=== PATIENT | female | born 1935 | race African-American/Black ===

== ENCOUNTER 2017-03-19 10:09 | Observation (INO) | payer MEDICARE ==
--- NOTE | 2017-03-19 10:46 | ER Document Report ---
ED Respiratory Problem <JONAH HE - Last Filed: 03/19/17 13:35> - General TRAVEL OUTSIDE OF THE [place] IN LAST 30 DAYS: No <SARAH BETH MATT - Last Filed: 03/19/17 14:27> - General Chief Complaint: Respiratory Distress Stated Complaint: SHORTNESS OF BREATH Time Seen by Provider: 03/19/17 10:36 Notes: Patient is here to have her heart checked. She says that on Saturday when she awakened with some shortness of breath and felt "a hard time breathing". She also experienced some left-sided anterior chest pains, and the upper portion of the left breast which was worsened if she coughed. She denies having a fever or any symptoms of a respiratory infection or illness. She has never had this pain previously. In fact, patient says she has never had any heart condition or heart attack or heart failure. Her only history is of high blood pressure. Yesterday, she says her symptoms were a little worse, but today she no longer has the pain and only feels some shortness of breath. Patient denies any swelling or pain of either of her legs. Currently not having any chest pain. Denies any vomiting or diarrhea. Denies UTI symptoms. (SARAH BETH MATT) - Related Data Allergies/Adverse Reactions: Penicillins Allergy (Verified 03/19/17 10:15) HIVES/SWELLING Past Medical History - Social History Smoking Status: Never Smoker Family History: Reviewed & Not Pertinent Patient has suicidal ideation: No Patient has homicidal ideation: No - Past Medical History Cardiac Medical History: Reports: Hx Hypertension Denies: Hx Heart Attack Pulmonary Medical History: Denies: Hx Asthma Neurological Medical History: Denies: Hx Cerebrovascular Accident, Hx Seizures GI Medical History: Reports: Hx Hepatitis. Denies: Hx Hiatal Hernia, Hx Ulcer Infectious Medical History: Denies: Hx Hepatitis Past Surgical History: Reports: Hx Orthopedic Surgery - Right TKR <SARAH BETH MATT - Last Filed: 03/19/17 14:27> Review of Systems <JONAH HE - Last Filed: 03/19/17 13:35> <SARAH BETH MATT - Last Filed: 03/19/17 14:27> - Review of Systems Notes: REVIEW OF SYSTEMS: CONSTITUTIONAL : Denies fever. EENT: Denies eye, ear, nose or mouth or throat pain or other symptoms. CARDIOVASCULAR: See HPI. RESPIRATORY: Has shortness of breath, but denies chest congestion or cough. GASTROINTESTINAL: Denies abdominal pain or nausea, vomiting, or diarrhea. GENITOURINARY: Denies difficulty or painful urinating, urinary frequency, blood in urine. MUSCULOSKELETAL: Denies back or neck pain. Denies joint pain or swelling. Denies any leg pain or swelling. SKIN: Denies rash or skin lesions. NEUROLOGICAL: Denies LOC or altered mental status. Denies headache. Denies sensory loss or motor deficits. ALL OTHER SYSTEMS REVIEWED AND NEGATIVE. (SARAH BETH MATT) Physical Exam <JONAH HE - Last Filed: 03/19/17 13:35> - Vital signs Interpretation: Normal <SARAH BETH MATT - Last Filed: 03/19/17 14:27> - Vital signs Vitals: Temp Pulse BP Pulse Ox 97.9 F 57 L 129/74 H 98 03/19/17 10:25 03/19/17 10:25 03/19/17 10:25 03/19/17 10:25 - Notes Notes: PHYSICAL EXAMINATION: GENERAL: Well-appearing, in no acute distress. Vital signs are all normal. Denies having any pain at this time, although she says she does feel a little short of breath. ENT: oropharynx clear without exudates. Moist mucous membranes. NECK: Normal range of motion, supple. LUNGS: Breath sounds clear and equal bilaterally. HEART: Regular rate and rhythm without murmurs. Heart rate about 100 to 120. Occasional ectopic beats noted. ABDOMEN: Soft, nontender. No guarding or rebound. BACK: No tenderness throughout entire back. EXTREMITIES: Normal range of motion without pain. No swelling or tenderness. Negative Homans bilaterally. NEUROLOGICAL: Normal speech, normal gait. Normal sensory, motor, and reflex exams. Awake, alert, and oriented x3. Cranial nerves normal. PSYCH: Normal mood, normal affect. SKIN: Warm, dry, no rashes. (SARAH BETH MATT) Course - Laboratory Result Diagrams: 03/19/17 10:37 03/19/17 10:37 <JONAH HE - Last Filed: 03/19/17 13:35> - Laboratory Result Diagrams: 03/19/17 10:37 03/19/17 10:37 - Diagnostic Test Radiology reviewed: Image reviewed, Reports reviewed - CTA of the chest shows extensive bilateral pulmonary emboli with some suggestion of early pulmonary infarct on the left side. - EKG Interpretation by Me EKG shows normal: Sinus rhythm Rate: Tachycardia - At 109 Rhythm: PVC's - Unifocal [place]/QRS: RBBB <SARAH BETH MATT - Last Filed: 03/19/17 14:27> - Re-evaluation Re-evalutation: 03/19/17 11:19 Patient's only previous visit to this hospital was for cataract surgery over a year ago. She did not have an EKG done at that time. We contacted her primary care physician's office in [place] and they provided us with an EKG from January,. The quality of that EKG is poor, but it appears to me that the patient had a right bundle branch block on that EKG. 03/19/17 13:08 Spoke with hospitalist on-call, Dr. Cameron, who will evaluate the patient in the emergency department to determine suitability for outpatient treatment versus inpatient treatment. (SARAH BETH MATT) - Vital Signs Vital signs: Temp Pulse Resp BP Pulse Ox 97.9 F 57 L 17 140/85 H 96 03/19/17 10:25 03/19/17 10:25 03/19/17 14:00 03/19/17 13:00 03/19/17 14:00 - Laboratory Laboratory results interpreted by me: 03/19/17 03/19/17 03/19/17 10:37 10:37 10:37 RDW 15.1 H D-Dimer 2.51 H BUN 23 H Est GFR (Non-Af Amer) 57 L Glucose 119 H Urine Ascorbic Acid 03/19/17 11:23 RDW D-Dimer BUN Est GFR (Non-Af Amer) Glucose Urine Ascorbic Acid 40 H - Diagnostic Test Radiology results interpreted by me: 03/19/17 13:02 Chest x-ray is normal. (SARAH BETH MATT) Discharge - Discharge Admitting Provider: Hospitalist Unit Admitted: IMCU <JONAH HE - Last Filed: 03/19/17 13:35> <SARAH BETH MATT - Last Filed: 03/19/17 14:27> - Discharge Clinical Impression: Pulmonary embolism Qualifiers: Pulmonary embolism type: other Chronicity: acute Acute cor pulmonale presence: without acute cor pulmonale Qualified Code(s): I26.99 - Other pulmonary embolism without acute cor pulmonale Condition: Stable
[2017-03-19 11:11] LABS: ABSOLUTE LYMPHOCYTES (AUTO) 1.5 10^3/uL (0.5-4.7); ABSOLUTE MONOCYTES (AUTO) 0.7 10^3/uL (0.1-1.4); ABSOLUTE NEUT (AUTO) 4.7 10^3/uL (1.7-8.2); BASOPHILS % (AUTO) 0.4 % (0-2); EOSINOPHILS % (AUTO) 0.6 % (0-6); HEMATOCRIT 44.5 % (36.0-47.0); HEMOGLOBIN 15.1 g/dL (12.0-15.5); HGB HCT DIFFERENCE 0.8; LYMPHOCYTES % (AUTO) 21.3 % (13-45); MEAN CORPUSCULAR VOLUME 88 fl (80-97); MONOCYTES % (AUTO) 9.8 % (3-13); RED BLOOD COUNT 5.04 10^6/uL (3.72-5.28); RED CELL DISTRIBUTION WIDTH 15.1 % (11.5-14.0); SEGMENTED NEUTROPHILS % (AUTO) 67.9 % (42-78); WHITE BLOOD COUNT 6.9 10^3/uL (4.0-10.5)
--- NOTE | 2017-03-19 11:20 | RADIOLOGY REPORT (SQ) ---
EXAM DESCRIPTION: CHEST PA/LAT COMPLETED DATE/TIME: 03/19/2017 11:13 am REASON FOR STUDY: short of breath and left chest pain COMPARISON: None. EXAM PARAMETERS: NUMBER OF VIEWS: two views TECHNIQUE: Digital Frontal and Lateral radiographic views of the chest acquired. RADIATION DOSE: NA LIMITATIONS: none FINDINGS: LUNGS AND PLEURA: No opacities, masses or pneumothorax. No pleural effusion. MEDIASTINUM AND HILAR STRUCTURES: No masses or contour abnormalities. HEART AND VASCULAR STRUCTURES: Heart normal size. No evidence for failure. BONES: No acute findings. Degenerative changes in the spine. HARDWARE: None in the chest. OTHER: No other significant finding. IMPRESSION: NO SIGNIFICANT RADIOGRAPHIC FINDING IN THE CHEST. TECHNICAL DOCUMENTATION: JOB ID: [id number] [employer]- All Rights Reserved
[2017-03-19 11:25] LABS: ALANINE AMINOTRANSFERASE 24 U/L (9-52); ALBUMIN 4.1 g/dL (3.5-5.0); ALKALINE PHOSPHATASE 90 U/L (38-126); ANION GAP 12 (5-19); ASPARTATE AMINO TRANSFERASE 23 U/L (14-36); BILIRUBIN,DIRECT 0.3 mg/dL (0.0-0.4); BILIRUBIN,TOTAL 0.7 mg/dL (0.2-1.3); BLOOD UREA NITROGEN 23 mg/dL (7-20); CALCIUM 10.2 mg/dL (8.4-10.2); CARBON DIOXIDE 24 mmol/L (22-30); CHLORIDE 105 mmol/L (98-107); CREATINE KINASE 48 U/L (30-135); CREATININE RESULT 0.94 mg/dL (0.52-1.25); GLUCOSE 119 mg/dL (75-110); POTASSIUM 4.2 mmol/L (3.6-5.0); SODIUM 140.9 mmol/L (137-145); TOTAL PROTEIN 7.9 g/dL (6.3-8.2)
[2017-03-19 11:37] LABS: CREATINE KINASE MB 0.95 ng/mL (<4.55); TROPONIN I < 0.012 ng/mL
[2017-03-19 11:41] LABS: APPEARANCE,URINE SLIGHTLY-CLOUDY; BILIRUBIN,URINE NEGATIVE (NEGATIVE); GLUCOSE, URINE NEGATIVE (NEGATIVE); KETONES,URINE NEGATIVE (NEGATIVE); LEUKOCYTE ESTERASE,URINE NEGATIVE (NEGATIVE); NITRITE,URINE NEGATIVE (NEGATIVE); PROTEIN,URINE NEGATIVE (NEGATIVE); UROBILINOGEN,URINE NEGATIVE mg/dL (<2.0)
[2017-03-19] MEDS ORDERED: NORMAL SALINE 1000 ML 1,000 ML IV ONE (12:14)
--- NOTE | 2017-03-19 12:55 | RADIOLOGY REPORT (SQ) ---
EXAM DESCRIPTION: CTA CHEST COMPLETED DATE/TIME: 03/19/2017 12:39 pm REASON FOR STUDY: Left side chest pain, mainly with cough, d-dimer + COMPARISON: None. TECHNIQUE: CT scan of the chest performed using helical scanning technique with dynamic intravenous contrast injection. Images reviewed with lung, soft tissue and bone windows. Reconstructed coronal and sagittal MPR images reviewed. Additional 3 dimensional post-processing performed to develop Maximal Intensity Projection images (ME P). All images stored on PACS. All CT scanners at this facility use dose modulation, iterative reconstruction, and/or weight based d osing when appropriate to reduce radiation dose to as low as reasonably achievable (ALARA). [facility]: Dose Right [facility]: CareDose [facility]: Dose Right [facility]: Teradose 4D [facility]: [employer] ([employer]) CONTRAST TYPE AND DOSE: contrast/concentration: Isovue 370.00 mg/ml; Total Contrast Delivered: 68.0 ml; Total Saline Delivered: 110.0 ml RENAL FUNCTION: BUN 23 creatinine 0.94. RADIATION DOSE: Up-to-date CT equipment and radiation dose reduction techniques were employed. CTDIv ol: 12.0 - 13.2 mGy. DLP: 470 mGy-cm. . LIMITATIONS: None. FINDINGS: LUNGS AND PLEURA: Scattered ground-glass opacity in the left apex. Right lung clear. No pleural effusion or pneumothorax. AORTA AND GREAT VESSELS: No aneurysm or dissection. HEART: No pericardial effusion. PULMONARY ARTERIES: Extensive filling defects in the pulmonary arteries to the right and left lungs, more pronounced in the upper lobes. HILAR AND MEDIASTINAL STRUCTURES: No identified masses or abnormal nodes. HARDWARE: None in the chest. UPPER ABDOMEN: No significant findings. Limited exam. THYROID AND OTHER SOFT TISSUES: No masses. No adenopathy. BONES: No acute or significant finding. 3D MIPS: Confirm above findings. OTHER: No other significant finding. IMPRESSION: 1. EXTENSIVE BILATERAL PULMONARY EMBOLI, MORE PRONOUNCED IN THE UPPER LOBES. 2. GROUND-GLASS OPACITY IN THE LEFT LUNG APEX. THIS IS NONSPECIFIC BUT GIVEN THE PRESENCE OF PULMONA RY EMBOLISM THIS COULD REPRESENT DEVELOPING PULMONARY INFARCTION. INFLAMMATION OR INFECTION ARE ALSO DIAGNOSTIC POSSIBILITIES. COMMENT: Pertinent findings on the imaging study reported as a CRITICAL RESULT to SARAH BETH MATT MD at12:49 on 03/19/2017. Category of Critical Result: Pulmonary emboli. TECHNICAL DOCUMENTATION: JOB ID: [id number] Quality ID # [id number]: Final reports with documentation of one or more dose reduction techniques (e.g., Au tomated exposure control, adjustment of the mA and/or kV according to patient size, use of iterative reconstruction technique) 2010 [employer]- All Rights Reserved
[2017-03-19] MEDS ORDERED: ZOLPIDEM TARTRATE 5 MG TABLET PO PRN (13:52)
[2017-03-19] MEDS ORDERED: PROMETHAZINE HCL 25 MG TABLET PO PRN (13:52)
[2017-03-19] MEDS ORDERED: ACETAMINOPHEN 325 MG TABLET PO PRN (13:52)
[2017-03-19] MEDS ORDERED: MAG HYDROX/AL HYDROX/SIMETH SUSP 30 ML UDCUP PO PRN (13:52)
[2017-03-19] MEDS ORDERED: OXYCODONE-ACETAMINOPHEN 5-325 MG TABLET PO PRN (13:52)
[2017-03-19] MEDS ORDERED: ENOXAPARIN SODIUM INJ 100 MG/1 ML DISP.SYRIN SUBCUT ONE (14:15)
--- NOTE | 2017-03-19 14:45 | PDOC H&P ---
History of Present Illness Admission Date/PCP: 03/19/17 dr. valencia History of Present Illness: MAITE MURO is a 81 year old female with a past medical history of hypertension and hyperlipidemia presents to the emergency department with a 2 day history of shortness of breath and chest pain. Patient reports that she took NyQuil for sleep on Saturday night and woke up Saturday morning feeling short of breath. She reported that she had some slight chest discomfort at that time on the left side but ignored this and went to yazidism. She reports that she later had hand and foot cramps for which she took mustard and this helped. Patient presented to the emergency department today because of ongoing shortness of breath and chest pain and not feeling well. She was found to have bilateral PEs. Patient reports that she last had a colonoscopy approximately 3 years ago and was told that everything was normal. She reports that she sees her doctor approximately every 3 months and has no problems taking any medications. She denies any history of malignancy, thrombophilic disorder, GI bleed, or trauma. Patient has no recent travel or immobilization. She is referred to the hospitalist service for pulmonary embolus. Past Medical History Cardiac Medical History: Reports: Hyperlipidema, Hypertension Denies: Myocardial Infarction Pulmonary Medical History: Denies: Asthma EENT Medical History: Reports: Cataracts Neurological Medical History: Reports: None Denies: Seizures Endocrine Medical History: Reports: None Renal/ Medical History: Reports: None GI Medical History: Reports: None Denies: Hepatitis, Hiatal Hernia Musculoskeltal Medical History: Reports: Arthritis Skin Medical History: Reports: None Psychiatric Medical History: Reports: None Traumatic Medical History: Reports: None Hematology: Reports: None Denies: Anemia, Sickle Cell Disease Infectious Medical History: Reports: None Past Surgical History Past Surgical History: Reports: Orthopedic Surgery - Right TKR, Other - Cataract surgery Denies: Amputation, Mastectomy, Pacemaker Social History Smoking Status: Never Smoker Frequency of Alcohol Use: None Hx Recreational Drug Use: No Hx Prescription Drug Abuse: No - Advance Directive Resuscitation Status: Full Code Surrogate healthcare decision maker:: Cleveland Davis, son Family History Family History: Hypertension, Malignancy, Other - Old age Parental Family History Reviewed: Yes Children Family History Reviewed: Yes Sibling(s) Family History Reviewed.: Yes Medication/Allergy Home Medications: Amlodipine Besylate 10 mg PO DAILY 08/24/15 Aspirin [Berks Aspirin] 81 mg PO DAILY PRN 08/24/15 Allergies/Adverse Reactions: Penicillins Allergy (Verified 03/19/17 10:15) HIVES/SWELLING Review of Systems Constitutional: PRESENT: fatigue. ABSENT: chills, fever(s), headache(s), weight gain, weight loss Eyes: ABSENT: visual disturbances Ears: ABSENT: hearing changes Cardiovascular: PRESENT: as per HPI, chest pain, dyspnea on exertion. ABSENT: edema, orthropnea, palpitations Respiratory: PRESENT: as per HPI, dyspnea. ABSENT: cough, hemoptysis, sputum Gastrointestinal: ABSENT: abdominal pain, constipation, diarrhea, hematemesis, hematochezia, melena, nausea, vomiting Genitourinary: PRESENT: nocturia. ABSENT: difficulty urinating, dysuria, hematuria Musculoskeletal: ABSENT: joint swelling Integumentary: ABSENT: rash, wounds Neurological: ABSENT: abnormal gait, abnormal speech, confusion, dizziness, focal weakness, frequent falls, lack of coordination, syncope Psychiatric: PRESENT: other - Insomnia. ABSENT: anxiety, depression, homidical ideation, suicidal ideation Endocrine: ABSENT: cold intolerance, heat intolerance, polydipsia, polyuria Hematologic/Lymphatic: ABSENT: easy bleeding, easy bruising Physical Exam Vital Signs: Temp Pulse Resp BP Pulse Ox 97.9 F 57 L 18 140/85 H 98 03/19/17 10:25 03/19/17 10:25 03/19/17 13:01 03/19/17 13:00 03/19/17 13:01 Intake & Output 03/18/17 03/19/17 03/20/17 06:59 06:59 06:59 Weight 84.3 kg General appearance: PRESENT: no acute distress, well-developed, well-nourished Head exam: PRESENT: atraumatic, normocephalic Eye exam: PRESENT: conjunctiva pink, EOMI, PERRLA. ABSENT: scleral icterus Ear exam: PRESENT: normal external ear exam Mouth exam: PRESENT: moist, tongue midline Neck exam: ABSENT: carotid bruit, JVD, lymphadenopathy, thyromegaly, tracheal deviation Respiratory exam: PRESENT: clear to auscultation wiley, symmetrical, tachypnea, unlabored. ABSENT: accessory muscle use, chest wall tenderness, crackles, rales , retraction, rhonchi, wheezes Cardiovascular exam: PRESENT: RRR, +S1, +S2, systolic murmur - LLSB 2/6, tachycardia - Very mild. ABSENT: clicks, diastolic murmur, gallop, rubs Pulses: PRESENT: normal dorsalis pedis pul Vascular exam: PRESENT: normal capillary refill GI/Abdominal exam: PRESENT: normal bowel sounds, soft. ABSENT: distended, firm , guarding, mass, Chen's sign, organolmegaly, rebound, rigid, tenderness Rectal exam: PRESENT: deferred Extremities exam: PRESENT: full ROM, other - Evidence of venous stasis. ABSENT : clubbing, pedal edema, tenderness Neurological exam: PRESENT: alert, awake, oriented to person, oriented to place , oriented to time, oriented to situation, CN II-XII grossly intact. ABSENT: motor sensory deficit Psychiatric exam: PRESENT: appropriate affect, normal mood. ABSENT: homicidal ideation, suicidal ideation Skin exam: PRESENT: dry, intact, warm. ABSENT: cyanosis, rash Results Laboratory Results: 03/19/17 10:37 03/19/17 10:37 03/19/17 03/19/17 03/19/17 10:37 10:37 11:23 WBC 6.9 RBC 5.04 Hgb 15.1 Hct 44.5 MCV 88 MCH 30.0 MCHC 34.0 RDW 15.1 H Plt Count 158 Seg Neutrophils % 67.9 Lymphocytes % 21.3 Monocytes % 9.8 Eosinophils % 0.6 Basophils % 0.4 Absolute Neutrophils 4.7 Absolute Lymphocytes 1.5 Absolute Monocytes 0.7 Absolute Eosinophils 0.0 Absolute Basophils 0.0 Sodium 140.9 Potassium 4.2 Chloride 105 Carbon Dioxide 24 Anion Gap 12 BUN 23 H Creatinine 0.94 Est GFR ( Amer) > 60 Est GFR (Non-Af Amer) 57 L Glucose 119 H Calcium 10.2 Total Bilirubin 0.7 AST 23 ALT 24 Alkaline Phosphatase 90 Total Protein 7.9 Albumin 4.1 Lipase 39.0 Urine Color YELLOW Urine Appearance SLIGHTLY-CLOUDY Urine pH 5.0 Ur Specific Lyle 1.020 Urine Protein NEGATIVE Urine Glucose (UA) NEGATIVE Urine Ketones NEGATIVE Urine Blood NEGATIVE Urine Nitrite NEGATIVE Ur Leukocyte Esterase NEGATIVE Urine WBC (Auto) 2 Urine RBC (Auto) 1 03/19/17 03/19/17 10:37 10:37 Creatine Kinase 48 CK-MB (CK-2) 0.95 Troponin I < 0.012 EKG Comments: Right bundle branch block, S1 QT T3 Impressions: Chest X-Ray 03/19/17 10:44 IMPRESSION: NO SIGNIFICANT RADIOGRAPHIC FINDING IN THE CHEST. Chest/Abdomen CTA 03/19/17 12:13 IMPRESSION: 1. EXTENSIVE BILATERAL PULMONARY EMBOLI, MORE PRONOUNCED IN THE UPPER LOBES. 2. GROUND-GLASS OPACITY IN THE LEFT LUNG APEX. THIS IS NONSPECIFIC BUT GIVEN THE PRESENCE OF PULMONARY EMBOLISM THIS COULD REPRESENT DEVELOPING PULMONARY INFARCTION. INFLAMMATION OR INFECTION ARE ALSO DIAGNOSTIC POSSIBILITIES. Status: Imported from PACS Assessment & Plan - Diagnosis (1) Pulmonary embolism Qualifiers: Pulmonary embolism type: other Chronicity: acute Acute cor pulmonale presence: without acute cor pulmonale Qualified Code(s): I26.99 - Other pulmonary embolism without acute cor pulmonale Is this a current diagnosis for this admission?: YesPlan: Patient with acute pulmonary embolus bilaterally without cor pulmonale. Place on observation. Begin patient on Lovenox and transition to Eliquis or Xarelto. I have discussed with both of her sons at length the risk and benefits of warfarin versus Xa inhibitors including increased risk of GI bleeding, and spontaneous hemorrhage. Questions answered to the best of my ability. Agreed to start Eliquis. Patient started on Lovenox pending other evaluation. Obtain echocardiogram. Follow cardiac enzymes. Will recommend patient follow-up with Dr. Johnson as an outpatient for hematologic evaluation. Given patient's age, have concern for underlying undiagnosed malignancy. She does report her last colonoscopy was 3 years ago normal. (2) Hyperlipidemia Qualifiers: Hyperlipidemia type: unspecified Qualified Code(s): E78.5 - Hyperlipidemia, unspecified Is this a current diagnosis for this admission?: YesPlan: Patient reports having recently had this checked and is in the process of changing her diet. Defer to patient's outpatient provider for follow-up (3) Hypertension Qualifiers: Hypertension type: essential hypertension Qualified Code(s): I10 - Essential (primary) hypertension Is this a current diagnosis for this admission?: YesPlan: Continue Norvasc 10 mg p.o. 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 Place patient on low-dose Ambien 5 mg p.o. nightly as needed. Patient with mildly prolonged QT interval and will avoid atypical antipsychotics for this patient. - Time Time Spent: 50 to 70 Minutes Medications reviewed and adjusted accordingly: Yes Anticipated discharge: Home Within: within 48 hours - Inpatient Certification Based on my medical assessment, after consideration of the patient's comorbidities, presenting symptoms, or acuity I expect that the services needed warrant INPATIENT care.: No I certify that my determination is in accordance with my understanding of Medicare's requirements for reasonable and necessary INPATIENT services [42 CFR 412.3e].: No Post Hospital Care: D/C Male Model Documentation
--- NOTE | 2017-03-19 16:55 | RADIOLOGY REPORT (SQ) ---
EXAM DESCRIPTION: VENOUS BILATERAL LOWER COMPLETED DATE/TIME: 03/19/2017 4:47 pm REASON FOR STUDY: new PE COMPARISON: None. TECHNIQUE: Dynamic and static adams scale and color images acquired of both lower extremity venous sy stems. Selected spectral images acquired with additional compression and augmentation maneuvers. Imag es stored on PACS. LIMITATIONS: None. FINDINGS: RIGHT LEG COMMON FEMORAL AND FEMORAL: Normal phasicity, compression and augmentation. No visualized echogenic m aterial on adams scale. No defects on color images. POPLITEAL: Normal compression and augmentation. No visualized echogenic material on adams scale. No de fects on color images. CALF VESSELS: Normal compression and augmentation. No visualized echogenic material on adams scale. No defects on color image. GSV AND SSV: Normal compression. No visualized echogenic material on adams scale. No defects on color images. ANY DEEP VENOUS INSUFFICIENCY: Not evaluated. ANY EVIDENCE OF POPLITEAL CYST: No. OTHER: No other significant finding. LEFT LEG COMMON FEMORAL AND FEMORAL: Normal phasicity, compression and augmentation. No visualized echogenic m aterial on adams scale. No defects on color images. POPLITEAL: Normal compression and augmentation. No visualized echogenic material on adams scale. No de fects on color images. CALF VESSELS: Normal compression and augmentation. No visualized echogenic material on adams scale. No defects on color images. GSV AND SSV: Normal compression. No visualized echogenic material on adams scale. No defects on color images. ANY DEEP VENOUS INSUFFICIENCY: Not evaluated. ANY EVIDENCE POPLITEAL CYST: No. OTHER: No other significant finding. IMPRESSION: NO EVIDENCE DVT OR SVT IN EITHER LEG. COMMENT: Preliminary report was called by the technologist to the referring clinician's office at th e time of patient visit. TECHNICAL DOCUMENTATION: JOB ID: [id number] [employer]- All Rights Reserved
[2017-03-19 17:30] LABS: CREATINE KINASE MB 0.89 ng/mL (<4.55)
[2017-03-19 17:38] LABS: TROPONIN I < 0.012 ng/mL
--- NOTE | 2017-03-19 18:18 | EKG REPORT ---
SEVERITY:- ABNORMAL ECG - SINUS TACHYCARDIA MULTIPLE VENTRICULAR PREMATURE COMPLEXES PROBABLE LEFT ATRIAL ABNORMALITY RIGHT BUNDLE BRANCH BLOCK AND LAFB ANTEROLATERAL INFARCT, AGE INDETERMINATE : Confirmed by: Javi Carbajal MD 19-Mar-2017 18:18:28
[2017-03-19] MEDS: ENOXAPARIN SODIUM INJ 100 MG/1 ML DISP.SYRIN SUBCUT SCH (21:52)
[2017-03-19 23:46] LABS: CREATINE KINASE MB 0.49 ng/mL (<4.55)
[2017-03-19 23:52] LABS: TROPONIN I < 0.012 ng/mL
[2017-03-20 05:18] LABS: HEMATOCRIT 40.9 % (36.0-47.0); HEMOGLOBIN 13.8 g/dL (12.0-15.5); HGB HCT DIFFERENCE 0.5; MEAN CORPUSCULAR HGB CONC 33.6 g/dL (32.0-36.0); MEAN CORPUSCULAR VOLUME 89 fl (80-97); RED BLOOD COUNT 4.59 10^6/uL (3.72-5.28); RED CELL DISTRIBUTION WIDTH 15.5 % (11.5-14.0); WHITE BLOOD COUNT 5.7 10^3/uL (4.0-10.5)
[2017-03-20 05:43] LABS: ANION GAP 9 (5-19); BLOOD UREA NITROGEN 17 mg/dL (7-20); CALCIUM 9.7 mg/dL (8.4-10.2); CARBON DIOXIDE 25 mmol/L (22-30); CHLORIDE 107 mmol/L (98-107); CREATINE KINASE 42 U/L (30-135); CREATININE RESULT 0.74 mg/dL (0.52-1.25); GLUCOSE 100 mg/dL (75-110); POTASSIUM 4.3 mmol/L (3.6-5.0); SODIUM 140.7 mmol/L (137-145)
[2017-03-20 05:49] LABS: CREATINE KINASE MB 0.45 ng/mL (<4.55)
[2017-03-20 05:52] LABS: TROPONIN I < 0.012 ng/mL
[2017-03-20] MEDS: ENOXAPARIN SODIUM INJ 100 MG/1 ML DISP.SYRIN SUBCUT SCH (09:57)
[2017-03-20] MEDS ORDERED: ASPIRIN 81 MG TABLET, CHEWABLE PO SCH (10:00)
[2017-03-20] MEDS ORDERED: AMLODIPINE BESYLATE 10 MG TABLET PO SCH (10:00)
[2017-03-20 16:24] VITALS: BP 130/75
[2017-03-20] MEDS ORDERED: APIXABAN 5 MG TABLET PO SCH (18:00)
--- NOTE | 2017-03-20 19:24 | XCELERA REPORT ---
[address] [address] Transthoracic Echocardiogram Report Name: MAITE MURO Age: 81 yrs Gender: Female : 1935 Patient Status: Inpatient Patient Location: [id number]\S\323\S\A Study Date: 03/20/2017 02:18 PM Height: 70 in Weight: 187 lb BSA: 2.0 m2 Procedure: A complete two-dimensional transthoracic echocardiogram was performed (2D, M-mode, spectral and color flow Doppler). The study was technically adequate with some images being suboptimal in quality. Reason For Study: acute pe, eval for rv strain Ordering Physician: SARY TREJO Performed By: Kiko Medina Interpretation Summary The left ventricular ejection fraction is normal. Doppler measurements suggest impaired left ventricular relaxation, which is associated with grade I/IV or mild diastolic dysfunction There is borderline concentric left ventricular hypertrophy. The left ventricle is grossly normal size. Wall motion cannot be accurately commented on, but no definite regional wall motion abnormalities noted. The right ventricle is mildly dilated. The right ventricular systolic function is normal. The right atrium is mildly dilated. The left atrial size is normal. There is a mild amount of mitral regurgitation There is no mitral valve stenosis. No aortic regurgitation is present. There is no aortic valve stenosis There is a mild amount of tricuspid regurgitation There is moderate pulmonary hypertension by echo Right ventricular systolic pressure is estimated to be elevated at 50- 60mmHg. There is no pericardial effusion. MMode/2D Measurements \T\ Calculations RVDd: 2.6 cm LVIDd: 4.5 cm FS: 37.3 % Ao root diam: 3.2 cm IVSd: 1.1 cm LVIDs: 2.9 cm EDV(Teich): 94.8 ml LVPWd: 1.2 cm ESV(Teich): 31.0 ml Ao root area: 8.3 cm2 EF(Teich): 67.3 % LA dimension: 3.0 cm Doppler Measurements \T\ Calculations MV E max pamela: MV P1/2t max pamela: Ao V2 max: LV V1 max P.8 cm/sec 25.8 cm/sec 150.8 cm/sec 2.9 mmHg MV A max pamela: MV P1/2t: 46.8 msec Ao max PG: LV V1 max: 85.2 cm/sec 9.1 mmHg 84.9 cm/sec MV E/A: 0.30 MVA(P1/2t): 4.7 cm2 MV dec slope: 161.8 cm/sec2 PA V2 max: PI end-d pamela: TR max pamela: RAP systole: 66.1 cm/sec 83.3 cm/sec 350.0 cm/sec 10.0 mmHg PA max PG: TR max P.7 mmHg 49.0 mmHg RVSP(TR): 59.0 mmHg Left Ventricle The left ventricle is grossly normal size. There is borderline concentric left ventricular hypertrophy. The left ventricular ejection fraction is normal. Doppler measurements suggest impaired left ventricular relaxation, which is associated with grade I/IV or mild diastolic dysfunction. Wall motion cannot be accurately commented on, but no definite regional wall motion abnormalities noted. Right Ventricle The right ventricle is mildly dilated. The right ventricular systolic function is normal. Atria The right atrium is mildly dilated. The left atrial size is normal. Interarterial septum not well visualized and not well dopplered. Cannot comment on ASD/PFO presence. Mitral Valve The mitral valve leaflets are sclerotic, but show no functional abnormalities. There is no mitral valve stenosis. There is a mild amount of mitral regurgitation. Aortic Valve The aortic valve is grossly normal. There is no aortic valve stenosis. No aortic regurgitation is present. Tricuspid Valve The tricuspid valve is not well visualized, but is grossly normal. There is no tricuspid stenosis. There is a mild amount of tricuspid regurgitation. There is moderate pulmonary hypertension by echo. Right ventricular systolic pressure is estimated to be elevated at 50-60mmHg. Pulmonic Valve The pulmonic valve is not well visualized. Great Vessels The aortic root is not well visualized but is probably normal size. The inferior vena cava appeared normal and decreased > 50% with respiration (RAP 5-10 mmHg). Effusions There is no pericardial effusion. : SARY TREJO > Clark Jang
--- NOTE | 2017-03-20 20:18 | Progress Note ---
Provider Note Provider Note: Began working on this at 1915: Called by patient pharmacist and informed that patient medication is not approved by [employer]. Asked he dispense medication for tonight. Completed prior authorization with [employer]. Informed at that time that it would be reviewed within 24-72hours of receipt by company. Unacceptable delay in patient medication. 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 Patient has a baseline 7% mortality with this condition, hence her recent hospitalization. Called number and spoke with JOHN. Given all information asked for and asked for expedited answer/resolution to patient medication needs as patient has already been discharged and would require readmission. No lovenox teaching had been given and patient has never taken warfarin. The risk of this in the outpatient setting is too great. At 20:13 finally have approval from [employer] after many phone calls. Attempted to reach patient pharmacy at 2014. No answer and no machine. 2017--Called patient. Pharmacy gave medication for tonight. Informed her of approval and encouraged her medication be picked up tomorrow morning. She reported she was feeling fine. TOTAL TIME SPENT: 62 minutes
--- NOTE | 2017-03-20 20:23 | PDOC DISCHARGE SUMMARY ---
General - Admit/Disc Date/PCP Admission Date/Primary Care Provider: 03/19/17 13:52 Discharge Date: 03/20/17 - Discharge Diagnosis (1) Pulmonary embolism Is this a current diagnosis for this admission?: Yes (2) Hyperlipidemia Is this a current diagnosis for this admission?: Yes (3) Hypertension Is this a current diagnosis for this admission?: Yes (4) Insomnia Is this a current diagnosis for this admission?: Yes (5) Pulmonary infarct Is this a current diagnosis for this admission?: Yes - Additional Information Resuscitation Status: Full Code Discharge Diet: Regular Discharge Activity: Activity As Tolerated, Slowly Increase Activity Home Medications: Amlodipine Besylate [Norvasc 10 mg Tablet] 10 mg PO DAILY 03/19/17 Aspirin [Adult Low Dose Aspirin EC] 81 mg PO QAM 03/19/17 Mv-Mn/Folic Acid/Calcium/Vit K [Women's 50 Plus Daily Formula] 1 tab PO DAILY Apixaban [Eliquis 5 mg Tablet] 5 mg PO BID #60 tablet 03/20/17 Apixaban [Eliquis 5 mg Tablet] 10 mg PO BID #28 tablet 03/20/17 Melatonin/Pyridoxine HCl (B6) [Melatonin 10 mg Tablet] 1 each PO QHS #90 tab.mphase 03/20/17 Tramadol HCl 50 mg PO TID #10 tablet 03/20/17 History of Present Illness History of Present Illness: MAITE MURO is a 81 year old female with a past medical history of hypertension and hyperlipidemia presents to the emergency department with a 2 day history of shortness of breath and chest pain. Patient reports that she took NyQuil for sleep on Saturday night and woke up Saturday morning feeling short of breath. She reported that she had some slight chest discomfort at that time on the left side but ignored this and went to [facility]. She reports that she later had hand and foot cramps for which she took mustard and this helped. Patient presented to the emergency department today because of ongoing shortness of breath and chest pain and not feeling well. She was found to have bilateral PEs. Patient reports that she last had a colonoscopy approximately 3 years ago and was told that everything was normal. She reports that she sees her doctor approximately every 3 months and has no problems taking any medications. She denies any history of malignancy, thrombophilic disorder, GI bleed, or trauma. Patient has no recent travel or immobilization. She is referred to the hospitalist service for pulmonary embolus. Hospital Course Hospital Course: Patient was placed on observation and started on Lovenox. She was transitioned to Eliquis successfully. Patient was ambulated and did not require oxygen with her saturation dropping no more than to 92%. Echocardiogram was performed which revealed mild diastolic dysfunction and moderate pulmonary hypertension with no overt right ventricular strain. This is consistent with patient's presentation. Please see post discharge issues and my provider note. Physical Exam Vital Signs: Temp Pulse Resp BP Pulse Ox 98.5 F 91 18 147/89 H 97 03/20/17 07:52 03/20/17 07:52 03/20/17 07:52 03/20/17 07:52 03/20/17 07:52 Intake & Output 03/19/17 03/20/17 03/21/17 06:59 06:59 06:59 Intake Total 250 Output Total 200 Balance 50 Weight 85.2 kg Exam: General: Awake alert and oriented x3 mild tachypnea,, no acute respiratory distress HEENT: AT/NC, PERRL, EOMI, oropharynx is moist, pink, no scleral icterus, no conjunctival injection Neck: No JVD, trachea midline Chest: Clear to auscultation bilaterally, no wheezes rhonchi or rales CV: Regular rate and rhythm, normal S1 and S2, no murmur, rub, or gallop Abdomen: Soft, nontender to palpation, nondistended, active bowel sounds; no rebound, rigidity, or guarding Extremities: No cyanosis, clubbing or edema Neuro: Cranial nerves II through XII are grossly intact without focal deficits; awake alert and oriented x3 Psych: Normal mood and affect Results Laboratory Results: 03/20/17 04:57 03/20/17 04:57 03/20/17 03/20/17 04:57 04:57 WBC 5.7 RBC 4.59 Hgb 13.8 Hct 40.9 MCV 89 MCH 30.0 MCHC 33.6 RDW 15.5 H Plt Count 153 Sodium 140.7 Potassium 4.3 Chloride 107 Carbon Dioxide 25 Anion Gap 9 BUN 17 Creatinine 0.74 Est GFR ( Amer) > 60 Est GFR (Non-Af Amer) > 60 Glucose 100 Calcium 9.7 08/09/0403/19/17 03/19/17 16:35 16:35 22:53 Creatine Kinase 52 41 CK-MB (CK-2) 0.89 Troponin I < 0.012 03/19/17 03/20/17 03/20/17 22:53 04:57 04:57 Creatine Kinase 42 CK-MB (CK-2) 0.49 0.45 Troponin I < 0.012 < 0.012 Impressions: Chest X-Ray 03/19/17 10:44 IMPRESSION: NO SIGNIFICANT RADIOGRAPHIC FINDING IN THE CHEST. Chest/Abdomen CTA 03/19/17 12:13 IMPRESSION: 1. EXTENSIVE BILATERAL PULMONARY EMBOLI, MORE PRONOUNCED IN THE UPPER LOBES. 2. GROUND-GLASS OPACITY IN THE LEFT LUNG APEX. THIS IS NONSPECIFIC BUT GIVEN THE PRESENCE OF PULMONARY EMBOLISM THIS COULD REPRESENT DEVELOPING PULMONARY INFARCTION. INFLAMMATION OR INFECTION ARE ALSO DIAGNOSTIC POSSIBILITIES. Venous Doppler Study 03/19/17 14:33 IMPRESSION: NO EVIDENCE DVT OR SVT IN EITHER LEG. Status: Imported from [facility] BEING DISCHARGED WITH ANY OF THE FOLLOWING DIAGNOSIS?: VTE (PE or DVT) VTE patient discharged on overlapping Therapy?: No Reason(s) for not prescribing Overlap Therapy:: Not indicated - On Eliquis Plan Time Spent: Greater than 30 Minutes - Total time spent on discharge including physical examination, coordination of care, formulation of this plan, and discussion with patient and family, and insurance difficulties was 95 minutes of time
== END 2017-03-20 17:24 | disposition home or self-care (01) ==
LOC: ER 10:09 → EH 13:52 → 3W 15:45
PROVIDERS: ADMIT Family Medicine; ATTEND Family Medicine
DX: I26.99 Other pulmonary embolism without acute cor pulmonale (principal); E78.5 Hyperlipidemia, unspecified; I10 Essential (primary) hypertension; G47.09 Other insomnia; I51.89 Other ill-defined heart diseases; I27.2 Other secondary pulmonary hypertension; R35.1 Nocturia; R01.1 Cardiac murmur, unspecified; R00.0 Tachycardia, unspecified; I45.81 Long QT syndrome; Z79.82 Long term (current) use of aspirin; Z79.899 Other long term (current) drug therapy; Z96.651 Presence of right artificial knee joint; Z82.49 Family history of ischemic heart disease and other diseases of the circulatory system; Z80.9 Family history of malignant neoplasm, unspecified; Z86.19 Personal history of other infectious and parasitic diseases
CPT/HCPCS: 93005; 99285; 96361; 96374; 36415 ×2; 82553 ×2; 82550 ×2; 83690; 85025; 85027; 80048; 80053; 81001; 84484 ×2; 85379; 93306; 93970; 71020; 71275; 93010; 97110; 97163; A9270 ×3; J3490 ×2; J7030; J1650 ×2; G8978; G8979

== ENCOUNTER → 2017-04-16 | Outpatient (CLI) | payer MEDICARE ==
--- NOTE | 2017-04-16 15:33 | RADIOLOGY REPORT (SQ) ---
EXAM DESCRIPTION: CT ABD/PELVIS WITH IV ORAL COMPLETED DATE/TIME: 04/16/2017 11:27 am REASON FOR STUDY: WEIGHT LOSS/ABD PAIN/ RECENT PE R63.4 ABNORMAL WEIGHT LOSS R10.9 UNSPECIFIED ABD OMINAL PAIN COMPARISON: 10/01/2007 TECHNIQUE: CT scan of the abdomen and pelvis performed using helical scanning technique with dynamic intravenous contrast injection. Oral contrast. Images reviewed with lung, soft tissue, and bone win dows. Reconstructed coronal and sagittal MPR images reviewed. Delayed images for evaluation of the ur inary system also acquired. All images stored on PACS. All CT scanners at this facility use dose modulation, iterative reconstruction, and/or weight based d osing when appropriate to reduce radiation dose to as low as reasonably achievable (ALARA). [facility]: Dose Right [facility]: CareDose [facility]: Dose Right [facility]: Teradose 4D [facility]: Helpa CONTRAST TYPE AND DOSE: contrast/concentration: Isovue 370.00 mg/ml; Total Contrast Delivered: 89.0 ml; Total Saline Delivered: 53.0 ml RENAL FUNCTION: Creatinine 0.7 BUN 17 RADIATION DOSE: Up-to-date CT equipment and radiation dose reduction techniques were employed. CTDIv ol: 6.5 - 10.7 mGy. DLP: 811 mGy-cm.. LIMITATIONS: None. FINDINGS: LOWER CHEST: No significant findings. No nodules or infiltrates. LIVER: Normal size. No masses. No dilated ducts. SPLEEN: Normal size. No focal lesions. PANCREAS: No masses. No significant calcifications. No adjacent inflammation or peripancreatic fluid collections. Pancreatic duct not dilated. GALLBLADDER: No identified stones by CT criteria. No inflammatory changes to suggest cholecystitis. ADRENAL GLANDS: No significant masses or asymmetry. RIGHT KIDNEY AND URETER: No solid masses. No significant calcifications. No hydronephrosis or hyd roureter. LEFT KIDNEY AND URETER: No solid masses. No significant calcifications. No hydronephrosis or hydr oureter. AORTA AND VESSELS: No aneurysm. No dissection. Mild atherosclerosis. Small plaques are present at the origins of the celiac, SMA, and renal arteries. RETROPERITONEUM: No retroperitoneal adenopathy, hemorrhage or masses. BOWEL AND PERITONEAL CAVITY: No masses or inflammatory changes. No free fluid or peritoneal masses. APPENDIX: Normal. PELVIS: The urinary bladder is normal. The uterus is normal for age. There is a 2.7 cm left adnexal cyst. ABDOMINAL WALL: No masses. No hernias. BONES: No significant or acute findings. OTHER: Lumbar degenerative disc changes, lower thoracic spondylosis. IMPRESSION: 1. There is no acute abnormality in abdomen or pelvis. 2. Mild atherosclerosis. 3. 2.7 cm left ovarian cyst, almost certainly benign. No follow-up imaging recommended. 4. Lumbar degenerative changes, spondylosis. TECHNICAL DOCUMENTATION: JOB ID: [id number] Quality ID # [id number]: Final reports with documentation of one or more dose reduction techniques (e.g., Au tomated exposure control, adjustment of the mA and/or kV according to patient size, use of iterative reconstruction technique) 2010 [employer]- All Rights Reserved
== END ==
LOC: RAD 08:44
PROVIDERS: ATTEND Internal Medicine Hematology & Oncology
DX: I26.99 Other pulmonary embolism without acute cor pulmonale (principal); R63.4 Abnormal weight loss; R10.9 Unspecified abdominal pain
CPT/HCPCS: 74177

== ENCOUNTER 2020-03-15 14:02 | Emergency (ER) | payer MEDICARE ==
[2020-03-15 14:11] VITALS: BP 151/81
--- NOTE | 2020-03-15 15:05 | ER Document Report ---
ED Medical Screen (RME) - General Chief Complaint: High Blood Pressure Stated Complaint: HYPERTENSION Time Seen by Provider: 03/15/20 14:50 Primary Care Provider: MARIA DEL ROSARIO DIETRICH MD [Primary Care Provider] - Follow up as needed Notes: Patient is an 84-year-old female who presents emergency department for high blood pressure readings at home. Patient states that her blood pressure was in the 200s systolic when EMS arrived. Patient denies any headache, chest pain, fever, abdominal pain, or any other symptoms. Patient states that she is at the end of her course for being treated for shingles. Patient states that she took Tylenol yesterday and her pain went away. Denies any excruciating pain today. Patient is currently on Eliquis. She has a history of hypertension. Exam: S1, S2. Blood pressure 151/81 here in the emergency department. I have greeted and performed a rapid initial assessment of this patient. A comprehensive ED assessment and evaluation of the patient, analysis of test results and completion of medical decision making process will be conducted by an additional ED providers. TRAVEL OUTSIDE OF THE [place] IN LAST 30 DAYS: No - Related Data Allergies/Adverse Reactions: Penicillins Allergy (Verified 03/19/17 10:15) HIVES/SWELLING Past Medical History - Social History Frequency of alcohol use: None Drug Abuse: None - Past Medical History Cardiac Medical History: Reports: Hx Hypercholesterolemia, Hx Hypertension Denies: Hx Heart Attack Pulmonary Medical History: Denies: Hx Asthma Neurological Medical History: Denies: Hx Cerebrovascular Accident, Hx Seizures Renal/ Medical History: Denies: Hx Peritoneal Dialysis GI Medical History: Denies: Hx Hepatitis, Hx Hiatal Hernia, Hx Ulcer Musculoskeltal Medical History: Reports Hx Arthritis Infectious Medical History: Denies: Hx Hepatitis Past Surgical History: Reports: Hx Orthopedic Surgery - Right TKR, Other - Cataract surgery. Denies: Hx Mastectomy, Hx Open Heart Surgery, Hx Pacemaker Physical Exam - Vital signs Vitals: Temp Pulse Resp BP Pulse Ox 98.5 F 75 18 151/81 H 98 03/15/20 14:10 03/15/20 14:10 03/15/20 14:10 03/15/20 14:10 03/15/20 14:10 Course - Vital Signs Vital signs: Temp Pulse Resp BP Pulse Ox 98.5 F 75 18 151/81 H 98 03/15/20 14:10 03/15/20 14:10 03/15/20 14:10 03/15/20 14:10 03/15/20 14:10 Doctor's Discharge - Discharge Referrals: MARIA DEL ROSARIO DIETRICH MD [Primary Care Provider] - Follow up as needed
[2020-03-15 15:24] LABS: ABSOLUTE LYMPHOCYTES (AUTO) 1.3 10^3/uL (0.5-4.7); ABSOLUTE MONOCYTES (AUTO) 0.4 10^3/uL (0.1-1.4); ABSOLUTE NEUT (AUTO) 1.8 10^3/uL (1.7-8.2); BASOPHILS % (AUTO) 0.6 % (0-2); EOSINOPHILS % (AUTO) 0.8 % (0-6); HEMATOCRIT 40.6 % (36.0-47.0); HEMOGLOBIN 13.2 g/dL (12.0-15.5); LYMPHOCYTES % (AUTO) 37.6 % (13-45); MEAN CORPUSCULAR HEMOGLOBIN 29.5 pg (27.0-33.4); MEAN CORPUSCULAR HGB CONC 32.6 g/dL (32.0-36.0); MEAN CORPUSCULAR VOLUME 91 fl (80-97); MONOCYTES % (AUTO) 10.4 % (3-13); PLATELET COUNT 158 10^3/uL (150-450); RED BLOOD COUNT 4.48 10^6/uL (3.72-5.28); RED CELL DISTRIBUTION WIDTH 15.9 % (11.5-14.0); SEGMENTED NEUTROPHILS % (AUTO) 50.6 % (42-78); TOTAL CELLS COUNTED % (AUTO) 100 %; WHITE BLOOD COUNT 3.6 10^3/uL (4.0-10.5)
[2020-03-15 15:42] LABS: ALKALINE PHOSPHATASE 72 U/L (38-126); ASPARTATE AMINO TRANSFERASE 25 U/L (14-36); BILIRUBIN,TOTAL 0.4 mg/dL (0.2-1.3); BLOOD UREA NITROGEN 19 mg/dL (7-20); CALCIUM 10.1 mg/dL (8.4-10.2); CARBON DIOXIDE 31 mmol/L (22-30); CHLORIDE 103 mmol/L (98-107); GLUCOSE 105 mg/dL (75-110); POTASSIUM 4.3 mmol/L (3.6-5.0); TOTAL PROTEIN 7.3 g/dL (6.3-8.2)
[2020-03-15 15:46] LABS: ANION GAP 4 (5-19)
--- NOTE | 2020-03-16 08:28 | EKG REPORT ---
SEVERITY:- ABNORMAL ECG - SINUS RHYTHM PROBABLE LEFT ATRIAL ABNORMALITY RBBB AND LAFB LEFT VENTRICULAR HYPERTROPHY : Confirmed by: Nirali Aparicio MD 16-Mar-2020 08:28:03
== END 2020-03-15 15:00 | disposition home or self-care (01) ==
LOC: ER 14:02
DX: I10 Essential (primary) hypertension (principal); B02.9 Zoster without complications; Z88.0 Allergy status to penicillin; Z53.20 Procedure and treatment not carried out because of patient's decision for unspecified reasons
CPT/HCPCS: 36415; 80053; 84484; 85025; 93005; 93010; 99281; 99284